=== PATIENT | male | born 1950 | race Caucasian/White ===

== ENCOUNTER 2017-10-20 11:32 | Outpatient (CLI) | payer MEDICARE ==
--- NOTE | 2017-10-20 12:27 | XRAY Report ---
Procedure Date: 10/20/2017 Accession Number: [id number] / [id number] Procedure: XRS - Wrist 4 View LT CPT Code: FULL RESULT: EXAM: Wrist 4 View LT DATE: 10/20/2017 12:07 PM CLINICAL HISTORY: UNSP INJURY OF LEFT WRIST, HAND AND FINGER(S), INI COMPARISON: None. TECHNIQUE: 4 views. FINDINGS: Bones: Normal. No fractures or bone lesions. Joints: Normal. No subluxations. Soft Tissues: Normal. No soft tissue swelling. IMPRESSION: Normal wrist radiography. RADIA
--- NOTE | 2017-10-20 12:27 | XRAY Report ---
Procedure Date: 10/20/2017 Accession Number: [id number] / [id number] Procedure: XRS - Hand 3 View LT CPT Code: FULL RESULT: EXAM: Hand 3 View LT DATE: 10/20/2017 12:07 PM CLINICAL HISTORY: UNSP INJURY OF LEFT WRIST, HAND AND FINGER(S), INI COMPARISON: None. TECHNIQUE: 3 views. FINDINGS: Bones: Normal. No fractures or bone lesions. Joints: Normal. No subluxations. Soft Tissues: Normal. No soft tissue swelling. IMPRESSION: Normal hand radiography. RADIA
== END 2017-10-20 11:33 | disposition home or self-care (01) ==
LOC: DI.S 11:32
PROVIDERS: ATTEND Nurse Practitioner Family
DX: S69.92XA Unspecified injury of left wrist, hand and finger(s), initial encounter (principal); M25.532 Pain in left wrist

== ENCOUNTER 2018-12-26 07:52 | Outpatient (CLI) | payer MEDICARE ==
--- NOTE | 2018-12-26 14:51 | CARDIAC PROCEDURE NOTE ---
DATE OF SERVICE: 12/26/2018 Physician: Ai Palomino MD, [facility] INDICATION: Dyspnea on exertion. CARDIAC RISK FACTORS 1. Male gender. 2. Hypertension. PROCEDURE: After signing informed consent, the patient underwent a Maxwell- protocol treadmill stress test with Echo imaging at rest and after stress. RESTING HEART RATE: 110. PEAK HEART RATE: 164 (107% predicted maximum heart rate for age). RESTING BLOOD PRESSURE: 170/70. PEAK BLOOD PRESSURE: 192/80. Oxygen saturation 97% at peak. The patient exercised for 3 minutes and 20 seconds and developed mild shortness of breath, had no chest pain. He achieved a peak heart brate of 164 (107% pred max HR for age), and 5 METS. Oxygen saturation was 97-98% throughout the entire test. The patient reported his perceived exertion at 10/20 on a Virgilio scale. RESTING EKG: Sinus tachycardia, rate 100. T-wave flattening in all precordial leads, inverted T waves V4 through V6 with [address] depressions in V5 and V6. EKG AT PEAK: [address] depression in leads II, III, and aVF, [address] depressions in leads V3 through V4, and [address] depressions in leads V5 and V6. These changes returned toward baseline at 5 minutes of recovery. SUMMARY: 1. Abnormal resting EKG. 2. Tachycardic at rest and throughout the entire test with rapid heart rate acceleration; consider dehydration on HCTZ med. 3. Hypertensive throughout the entire test, despite taking his usual blood pressure medications this a.m. (HCTZ and Losartan). 4. Poor exercise tolerance. 5. EKG showed worsening ST segments with exercise. This is nonspecific, could be due to baseline EKG abnormality or due to ischemia. 6. Patient's cardiac risk: Moderate-High 7. Echo images reported separately. cc: SANGEETHA Krueger TD: 12/26/2018 14:21 MTDD
== END 2018-12-26 07:53 | disposition home or self-care (01) ==
LOC: DI 07:52
PROVIDERS: ATTEND Nurse Practitioner Family
DX: R06.09 Other forms of dyspnea (principal); R94.31 Abnormal electrocardiogram [ECG] [EKG]
CPT/HCPCS: 93350

== ENCOUNTER 2019-09-03 09:09 | Outpatient (CLI) | payer MEDICARE ==
--- NOTE | 2019-09-03 11:51 | Ultrasound Report ---
Reason: ELEVATED LIVER ENZYMES Procedure Date: 09/03/2019 Accession Number: [id number] / [id number] Procedure: US - Abdomen Limited CPT Code: Final Report FULL RESULT: PROCEDURE: Abdomen Limited INDICATIONS: ELEVATED LIVER ENZYMES TECHNIQUE: Real-time focused scanning was performed of the abdomen, with image documentation. COMPARISON: PROCEDURE: Abdomen Limited INDICATIONS: ELEVATED LIVER ENZYMES TECHNIQUE: Real-time scanning was performed of the abdominal and retroperitoneal organs, with image documentation. COMPARISON: None. FINDINGS: Liver: The liver measures 17.1 cm in length and demonstrates increased echogenicity. Focal fatty sparing is present near the gallbladder fossa. Gallbladder: The gallbladder wall measures 2.0 mm in diameter. No stones, sludge, pericholecystic fluid, or sonographic Stearns sign. Biliary ducts: Intrahepatic bile ducts are non-dilated. Extrahepatic bile duct caliber measures 4.0 mm. Normal is 6-7 mm or less in diameter, or 10 mm or less post-cholecystectomy. Pancreas: Visualized portions of the pancreas are sonographically normal. Spleen: Spleen is normal in size and homogeneous in echotexture. Kidneys: The right kidney measures 10.9 cm in length and demonstrates a cortex measuring 1.1 cm in diameter. Miscellaneous: No free abdominal fluid. IMPRESSION: 1. No cholelithiasis or findings to suggest choledocholithiasis or acute cholecystitis. 2. Increased hepatic echogenicity suggesting hepatic steatosis although other sources of hepatocellular dysfunction could be considered in the differential diagnosis. Reviewed by: Minerva Jimenez MD on 09/03/2019 11:50 AM PDT Approved by: Minerva Jimenez MD on 09/03/2019 11:50 AM PDT Station ID: [id number]
== END 2019-09-03 09:10 | disposition home or self-care (01) ==
LOC: DI 09:09
PROVIDERS: ATTEND Nurse Practitioner Family
DX: R74.8 Abnormal levels of other serum enzymes (principal)
CPT/HCPCS: 76705

== ENCOUNTER 2021-09-07 09:41 | Outpatient (CLI) | payer MEDICARE ==
[2021-09-07 14:15] LABS: BASOPHILS # (AUTO) 0.1 10^3/uL (0.0-0.1); BASOPHILS % (AUTO) 0.7 %; EOSINOPHILS # (AUTO) 0.1 10^3/uL (0.0-0.7); HCT - HEMATOCRIT 44.2 % (42.0-52.0); HGB - HEMOGLOBIN 13.9 g/dL (14.0-18.0); LYMPHOCYTES # (AUTO) 1.4 10^3/uL (1.5-3.5); LYMPHOCYTES % (AUTO) 19.9 %; MEAN CORPUSCULAR HEMOGLOBIN 29.4 pg (27.0-31.0); MEAN CORPUSCULAR HGB CONC 31.4 g/dL (32.0-36.0); MEAN CORPUSCULAR VOLUME 93.6 fL (80.0-94.0); MEAN PLATELET VOLUME 12.7 fL (7.4-11.4); MONOCYTES # (AUTO) 0.5 10^3/uL (0.0-1.0); MONOCYTES % (AUTO) 7.2 %; NEUTROPHILS # (AUTO) 5.1 10^3/uL (1.5-6.6); NEUTROPHILS % (AUTO) 70.9 %; PLT - PLATELET COUNT 128 10^3/uL (130-450); RED BLOOD COUNT 4.72 10^6/uL (4.70-6.10); RED CELL DISTRIBUTION WIDTH 13.7 % (12.0-15.0); WHITE BLOOD COUNT 7.1 x10^3/uL (4.8-10.8)
[2021-09-07 16:07] LABS: PLATELET ESTIMATE, MANUAL DECREASED (<130,000) (NORMAL); PLATELET MORPHOLOGY NORMAL APPEARANCE (NORMAL); RBC MORPHOLOGY (MULTIPLE) NORMAL APPEARANCE (NORMAL); WBC MORPHOLOGY (MULTIPLE) NORMAL APPEARANCE (NORMAL)
[2021-09-07 16:08] LABS: DIFFERENTIAL COMMENT MANUAL=AUTO DIFF
== END 2021-09-07 09:42 | disposition home or self-care (01) ==
LOC: LAB.S 09:41
PROVIDERS: ATTEND Nurse Practitioner Family
DX: D69.6 Thrombocytopenia, unspecified (principal)
CPT/HCPCS: 36415; 85025; 85651; 86141